=== PATIENT | female | born 1960 | race Caucasian/White ===

== ENCOUNTER 2016-07-17 15:25 | Outpatient (CLI) | payer OTHER | END 2016-07-17 15:26 | disposition home or self-care (01) | DX: G47.8 Other sleep disorders (principal); G47.00 Insomnia, unspecified ==

== ENCOUNTER 2016-08-11 21:32 | Outpatient (CLI) | payer OTHER | END 2016-08-11 21:33 | disposition home or self-care (01) | DX: R09.02 Hypoxemia (principal) ==

== ENCOUNTER 2016-08-30 15:12 | Outpatient (CLI) | payer OTHER | END 2016-08-30 15:13 | disposition home or self-care (01) | DX: R09.02 Hypoxemia (principal); G47.00 Insomnia, unspecified ==

== ENCOUNTER 2021-10-10 06:47 | Outpatient (CLI) | payer OTHER | END 2021-10-10 06:48 | disposition left against medical advice (07) | LOC: EMS 06:47 | DX: R07.89 Other chest pain (principal) ==